=== PATIENT | female | born 1925 | race Caucasian/White ===

== ENCOUNTER → 2017-07-10 | Outpatient (CLI) | payer OTHER, MEDICARE ==
[~2017-07-10] MED LIST: APHEN325 MG; ATENOLOL 100MG100 M2 PO; ATENOLOL 25 MG25 M1; B-121000 MCG PO; DECONGESTANT NA15 ML NASAL; FISH OIL 1,0001 EAC6 PO; MULTIVITAMINS PO; NORVASC 2.5 MG2.5 M1 PO; VITAMIN B-12100 MC1; VITAMIN D3400 UNI1 PO; VITAMIN D400 UNI1
== END ==
LOC: RAD 01:15
DX: Z12.31 Encounter for screening mammogram for malignant neoplasm of breast (principal)

== ENCOUNTER 2017-07-20 15:25 | Inpatient (IN) | payer OTHER, MEDICARE ==
[~2017-07-20] VITALS: Ht 167.6 cm; Wt 68.8 kg
--- NOTE | ~2017-07-20 | EKG ---
[address] [place] [employer] [place] [address] ELECTROCARDIOGRAM REPORT Name: RICCO MURCIA Room #: 170-8 ADM IN M.R.#: [id number] Admission: 07/20/17 Attend Phys: Bonnie Bonds Discharge: Date of : [birth year] Report #: [id number] THIS REPORT FOR: //name// [facility] ED Test Date: 2017-07-20 Test Time: 15:42:37 Pat Name: RICCO MURCIA Department: Room: 170 Gender: F [employer]our Mixer Helper: MZOOK : [id number] Requested By: Cory Paulson Order Number: [id number] MD: Eliud Nicholson Measurements Intervals [place] Rate: 89 P: DE: QRS: -11 QRSD: 98 T: -5 QT: 384 QTc: 468 Interpretive Statements Sinus rhythm Borderline T wave abnormalities Compared to ECG 04/07/2013 18:28:28 T-wave abnormality now present Sinus bradycardia no longer present ST (T wave) deviation no longer present Electronically Signed On 07-20-2017 17:34:04 [employer] by Eliud Nicholson [email or web address] <ELECTRONICALLY SIGNED> By: Eliud Nicholson MD 07/20/17 1734 1542 1542 Eliud Nicholson MD /EPI
[2017-07-20 15:26] VITALS: BP 185/102
[2017-07-20 15:53] LABS: HEMATOCRIT 44.4 % (37.0-47.0); MCHC 33.8 g/dL (28.0-37.0); MCV 97.4 fL (80.0-100.0); PLATELET COUNT 220 thou/uL (150-400); RBC 4.56 mil/uL (4.20-5.00); RDW 13.3 % (10.5-14.5); WBC 9.4 thou/uL (4.0-11.0)
[2017-07-20 16:05] LABS: URINE BLOOD 2+ (Negative); URINE COLOR YELLOW; URINE GLUCOSE-RANDOM* NEGATIVE (Negative); URINE KETONES 2+ (Negative); URINE LEUKOCYTES NEGATIVE (Negative); URINE NITRITE NEGATIVE (Negative); URINE PROTEIN (DIPSTICK) 3+ (Negative); URINE SPECIFIC GRAVITY >= 1.030 (1.005-1.035); URINE UROBILINOGEN 0.2 E.U./dl (0.2-1.0)
[2017-07-20 16:06] LABS: ANION GAP 11 mmol/L (7-16); BUN 41 mg/dL (7-18); CALCIUM 8.7 mg/dL (8.5-10.1); CHLORIDE 103 mmol/L (98-107); CO2 27 mmol/L (21-32); CREATININE 0.8 mg/dL (0.6-1.0); GLUCOSE 121 mg/dL (74-106); POTASSIUM 3.9 mmol/L (3.5-5.1); SODIUM 141 mmol/L (136-145)
[2017-07-20 16:10] LABS: URINE BILIRUBIN NEGATIVE (Negative); URINE CLARITY SL HAZY
[2017-07-20 16:12] LABS: SQUAMOUS 0-3 Few /LPF (0-3); URINE RBC 3-10 Few /HPF (0-2); URINE WBC 0-5 Rare /HPF (0-5)
[2017-07-20 16:13] LABS: CASTS None Seen /LPF (None Seen); CRYSTALS None Seen /LPF (None Seen); MUCUS >6 Heavy strn/LPF (None Seen)
[2017-07-20 16:27] LABS: ABSOLUTE NEUTROPHILS 8.6 thou/uL (1.4-8.2); ANISOCYTOSIS 1+
[2017-07-20 16:29] LABS: TROPONIN-I < 0.04 ng/mL (<0.06)
[2017-07-20 18:15] VITALS: BP 153/87
[2017-07-20 19:54] VITALS: BP 193/93
[2017-07-20 20:55] VITALS: BP 175/94
[2017-07-21 00:25] VITALS: BP 183/81
[2017-07-21 05:05] VITALS: BP 135/72
[2017-07-21 06:10] LABS: ALBUMIN 2.4 g/dL (3.4-5.0); PHOSPHORUS 2.2 mg/dL (2.5-4.9); POTASSIUM 3.4 mmol/L (3.5-5.1)
[2017-07-21 06:39] LABS: CALCIUM 7.6 mg/dL (8.5-10.1); CREATININE 0.5 mg/dL (0.6-1.0)
[2017-07-21 10:08] VITALS: BP 144/56
[2017-07-21 17:50] VITALS: BP 145/62
[2017-07-21 19:08] VITALS: BP 147/83
[2017-07-22 03:35] VITALS: BP 176/82
[2017-07-22 04:45] VITALS: BP 131/65
[2017-07-22 08:00] VITALS: BP 162/75
[2017-07-22 16:09] VITALS: BP 188/91
[2017-07-22 16:52] VITALS: BP 139/51
[2017-07-22 20:00] VITALS: BP 152/67
[2017-07-23 03:56] VITALS: BP 165/102
[2017-07-23 10:11] VITALS: BP 189/106
[2017-07-23 11:34] VITALS: BP 157/79
[2018-03-29] MEDS ORDERED: ELIQUIS5 MG PO (22:01)
[2018-04-02] MEDS ORDERED: MIRALAX17 GM PO (11:56)
[2018-04-02] MEDS ORDERED: B-12500 MCG PO (11:56)
== END 2017-07-23 13:50 | DRG 564 ==
LOC: ER 15:25 → 3W 17:20 → EROBS 17:20 → 3W 18:20
PROVIDERS: Hospitalist; Nurse Practitioner
DX: T79.6XXA Traumatic ischemia of muscle, initial encounter (principal); E43 Unspecified severe protein-calorie malnutrition; G93.40 Encephalopathy, unspecified; E86.0 Dehydration; F03.90 Unspecified dementia, unspecified severity, without behavioral disturbance, psychotic disturbance, mood disturbance, and anxiety; I10 Essential (primary) hypertension; M19.90 Unspecified osteoarthritis, unspecified site; W18.39XA Other fall on same level, initial encounter; Z88.2 Allergy status to sulfonamides; Z91.041 Radiographic dye allergy status
CPT/HCPCS: 10080